=== PATIENT | female | born 1990 | race Two or more races ===

== ENCOUNTER 2019-09-01 00:12 | Emergency (ER) | payer MEDICAID ==
[~2019-09-01] VITALS: Ht 167.6 cm; Wt 122.5 kg
--- NOTE | 2019-09-01 00:20 | NUR ---
BIB EMS C/O SOB AND FEELING SICK PER EMS REPORT. PER PT "ITS ANXIETY, I GOT ANXIOUS BECAUSE I TESTED (+) FOR COVID ION THURSDAY BUT I FEEL BETTER NOW".. pt was placed on a monitor ,. VSS.
--- NOTE | 2019-09-01 00:35 | NUR ---
x ray at the bed side
--- NOTE | 2019-09-01 01:26 | NUR ---
Pt is medically clear for d/c. Patient discharged to home in stable condition. Written and verbal after care instructions given. Patient verbalizes understanding of instruction.
[2019-09-01 01:27] VITALS: BP 119/75
== END 2019-09-01 01:27 | disposition home or self-care (01) ==
LOC: ER 00:16
DX: F41.9 Anxiety disorder, unspecified (principal); U07.1 COVID-19
CPT/HCPCS: 71045-TC